=== PATIENT | female | born 1965 | race Hispanic/Latino ===

== ENCOUNTER 2019-05-29 11:14 | Outpatient (CLI) | payer OTHER ==
--- NOTE | 2019-05-31 12:54 | Mammography Report ---
DIGITAL SCREENING MAMMOGRAM WITH CAD, 05/29/2019 INDICATION: Routine screening mammography. TECHNIQUE: Digital bilateral 2D mammography was obtained in the craniocaudal and mediolateral obliq ue projections. This examination was interpreted with the benefit of Computer-Aided Detection analysi s. COMPARISON: None available. She does not recall where she previously had a mammogram. FINDINGS: Breast Density: The breasts are heterogeneously dense, which may obscure small masses. Right asymmetries require additional imaging. No architectural distortion or suspicious calcification s of the right breast. There is no evidence of dominant mass, suspicious calcifications or architectu ral distortion in the left breast. IMPRESSION: Right asymmetries requiring further workup. Recommend recall for right lateral, spot comp ression MLO and CC views and right breast ultrasound if needed. Follow up recommendation: Routine yearly Category 0: Incomplete. Needs additional imaging evaluation and/or prior mammograms for comparison. A "normal" or negative report should not discourage follow up or biopsy of a clinically significant f inding. A written summary of these findings will be mailed to the patient. The patient will be entered into a mammography reporting system which will generate a reminder letter for the patient's next appointmen t at the appropriate interval. The [employer] recommends yearly mammograms starting at age 40 and continuing as l tre as a woman is in good health. Breast MRI is recommended for women with an approximate 20-25% or greater lifetime risk of breast cancer, including women with a strong family history of breast or ova jd cancer or who have been treated for Hodgkin's disease. Signer Name: Arnol Marcelo MD Signed: 05/31/2019 12:50 PM Workstation Name: [id number]
--- NOTE | 2019-05-31 12:57 | Mammography Report ---
BONE DEXA CLINICAL: Postmenopausal. TECHNIQUE: 3 site bone DEXA performed on an Hologic scanner. FINDINGS: The average BMD of the lumbar spine L1-L4 is 0.860g/cm squared with a T score of -1.7 and a Z score o f -0.8. The average total BMD of the left hip is 0.868 g/cm squared with a T score of -0.6and a Z score of -0 .1. The left femoral neck BMD is 0.707 g/cm squared with a T score of -1.3 and a Z score of -0.4. IMPRESSION: 1. WHO classification: Osteopenia with increased fracture risk based on spine measurements. 2. WHO classification Osteopenia with increased fracture risk based on left femoral neck measurements . RECOMMENDATION: Clinical correlation and routine screening. Definitions: BMD equal bone mineral density T score = BMD related to peak bone mass of young adult ([place] expressed an standard deviation) Z score = age-matched BMD expressed in SD World health organization (WHO) diagnostic criteria Normal T score greater than equal to 1 standard deviation Osteopenia T score between -1 and -2.4 standard deviation Osteoporosis T score -2.5 standard deviation or below. Note: BMD is not the only risk factor for fracture; also consider factors such as the patient's age, risk of falling, previous osteoporotic fracture, family history of osteoporotic fractures, current sm oker and low body weight. Z scores are not calculated if greater than 80 years of age. Signer Name: Arnol Marcelo MD Signed: 05/31/2019 12:53 PM Workstation Name: [id number]
== END 2019-05-29 11:15 | disposition home or self-care (01) ==
LOC: SPVWC 11:14
PROVIDERS: ATTEND Family Medicine
DX: Z12.31 Encounter for screening mammogram for malignant neoplasm of breast (principal); Z78.0 Asymptomatic menopausal state; Z90.710 Acquired absence of both cervix and uterus
CPT/HCPCS: 77067; 77080

== ENCOUNTER 2019-06-12 13:11 | Outpatient (CLI) | payer OTHER ==
--- NOTE | 2019-06-12 14:05 | Mammography Report ---
DIGITAL DIAGNOSTIC MAMMOGRAM WITH CAD, 06/12/2019 INDICATION: Recall for asymmetries. TECHNIQUE: Digital right mammographic imaging was performed. Spot compression views were obtained. This examination was interpreted with the benefit of Computer-aided Detection analysis. COMPARISON: 05/29/2019 FINDINGS: Breast Density: The breast is heterogeneously dense, which may obscure small masses. Additional right mammographic views are negative. Satisfactory effacement of asymmetries on spot comp ression views. A lateral view is negative. IMPRESSION: No mammographic evidence of malignancy. Follow up recommendation: Routine yearly BI-RADS Category 1: Negative. A "normal" or negative report should not discourage follow up or biopsy of a clinically significant f inding. A written summary of these findings will be mailed to the patient. The patient will be entered into a mammography reporting system which will generate a reminder letter for the patient's next appointmen t at the appropriate interval. According to the [employer], yearly mammograms are recommended starting at age 40 and continuing as long as a woman is in good health. Breast MRI is recommended for women with an ty roximately 20-25% or greater lifetime risk of breast cancer, including women with a strong family his tory of breast or ovarian cancer and women who have been treated for Hodgkin's disease. Signer Name: Arnol Marcelo MD Signed: 06/12/2019 2:01 PM Workstation Name: [id number]
== END 2019-06-12 13:12 | disposition home or self-care (01) ==
LOC: MAMMO 13:11
PROVIDERS: ATTEND Family Medicine
DX: R92.8 Other abnormal and inconclusive findings on diagnostic imaging of breast (principal)